=== PATIENT | male | born 1935 | race Caucasian/White ===

== ENCOUNTER 2017-01-22 08:28 | Emergency (ER) | payer MEDICARE, OTHER ==
[~2017-01-22] VITALS: Ht 190.5 cm; Wt 127.3 kg
[~2017-01-22 08:28] MED LIST: ASPIRIN 81M81 MG/TA2 PO; COMBIVENT INH14.7 GM IH; DUO-KAPS1 CAP PO; FISH OIL 1000MG1 CAP PO; HCTZ 25MG TAB25 MG PO; K-DUR 10 MEQ T10 MEQ PO; LASIX 20MG TABL20 MG PO; LEVAQUIN 750MG750 M1 PO; MICARDIS80 MG PO; NATURAL E400 IU PO; NEXIUM 40MG40 MG PO; NITROSTAT0.4 MG/TAB SL; OCUVITE1 TA1 PO; OMEGA 3 120 MG-1 CAP PO; PLAVIX 75MG TAB75 MG PO; PLENDIL10 MG PO; PRILOSEC 20MG20 MG PO; THERAGRAN1 TA1 PO; TOPROL XL100 MG PO; TYLENOL 325MG325 MG PO; VYTORIN 10 MG-41 TAB PO; ZANTAC 150MG T150 MG PO; ZETIA 10MG TAB10 MG PO; ZOCOR 40MG40 MG PO; [UNRECOGNIZED DRUG - REMARK]
[2017-01-22 08:32] VITALS: TEMP 97.4
[2017-01-22] MEDS ORDERED: ELIQUIS 5MG PO (08:50)
[2017-01-22 09:08] LABS: INR 1.4 (0.8-3.0); PROTHROMBIN TIME 15.3 SECONDS (9.7-12.8)
[2017-01-22 09:11] LABS: PARTIAL THROMBOPLASTIN TIME 39.1 SECONDS (26.0-37.0)
[2017-01-22 09:25] LABS: ADJUSTED CALCIUM 9.2 mg/dL (8.4-10.2); ALANINE AMINOTRANSFERASE 43 U/L (21-72); ALBUMIN 4.2 gm/dL (3.5-5.0); ALKALINE PHOSPHATASE 48 U/L (50-136); ANION GAP 12 mmol/L (7-16); BASO % 0.8 % (0.0-2.0); BILIRUBIN,TOTAL 1.4 mg/dL (0.0-1.0); BLOOD UREA NITROGEN 15 mg/dL (9-20); CALCIUM 9.4 mg/dL (8.4-10.2); CARBON DIOXIDE 27 mmol/L (22-30); CHLORIDE 104 mmol/L (98-107); CREATININE, serum 1.03 mg/dL (0.66-1.25); EOS # 0.2 (0.0-0.7); EOS % 5.1 % (0-4.0); GLUCOSE 115 mg/dL (74-106); GRAN # 2.7 (1.4-6.5); GRAN % 57.1 % (42.2-75.2); HEMATOCRIT 44.3 % (42.0-52.0); HEMOGLOBIN 15.2 g/dl (13.5-18.0); LYMPH # 1.3 (1.2-3.4); LYMPH % 27.7 % (20.0-51.0); MEAN CELL VOLUME 92 fl (80.0-100.0); MEAN CORPUSCULAR HEMOGLOBIN 32 pg (27.0-31.0); MEAN CORPUSCULAR HGB CONC 34 g/dl (33.0-37.0); MEAN PLATELET VOLUME 10.9 fl (7.4-10.4); MONO # 0.4 (0.1-0.6); MONO % 9.1 % (1.7-9.3); PLATELET COUNT 192 K/mm3 (130-400); POTASSIUM 3.1 mmol/L (3.4-5.0); REDCELL DISTRIBUTION WIDTH-CV 13.7 % (11.5-14.5); SODIUM 143 mmol/L (137-145); TOTAL PROTEIN 7.1 gm/dL (6.4-8.2); WHITE BLOOD COUNT 4.7 K/mm3 (4.8-10.8)
[2017-01-22 09:36] LABS: C-REACTIVE PROTEIN < 0.5 mg/dL (0.0-0.9); TROPONIN-I < 0.012 ng/mL (0.000-0.034)
[2017-01-22 09:36] LABS: PH 6 (5-8); SQUAMOUS EPITHELIAL None Seen /hpf; URINE APPEARANCE Clear; URINE BACTERIA None Seen /hpf; URINE BILIRUBIN Negative (NEGATIVE); URINE BLOOD Negative (NEGATIVE); URINE COLOR Yellow; URINE GLUCOSE Negative (NEGATIVE); URINE KETONE Negative (NEGATIVE); URINE RBC 0-2 /hpf; URINE UROBILINOGEN Negative (NEGATIVE)
[2017-01-22] MEDS ORDERED: BONINE25 MG PO (09:42)
[2017-01-22 10:09] VITALS: BP 130/83; PULSE 64
[2017-01-22] MEDS ORDERED: DIOVAN320 MG PO (10:12)
[2017-01-22] MEDS ORDERED: GRALISE300 MG PO (10:12)
[2017-01-22] MEDS ORDERED: FLOMAX 0.40.4 MG/CAP PO (10:12)
[2017-01-22] MEDS ORDERED: VYTORIN 10 MG-41 TAB PO (10:12)
== END 2017-01-22 10:12 | disposition home or self-care (01) ==
LOC: COL.ER 08:28
PROVIDERS: Family Medicine
DX: H81.21 Vestibular neuronitis, right ear (principal); I25.10 Atherosclerotic heart disease of native coronary artery without angina pectoris; Z95.5 Presence of coronary angioplasty implant and graft; I48.91 Unspecified atrial fibrillation

== ENCOUNTER → 2018-06-22 | Outpatient (CLI) | payer MEDICARE, OTHER ==
[~2018-06-22] MED LIST changes: +BONINE25 MG PO; +DIOVAN320 MG PO; +ELIQUIS 5MG PO; +FLOMAX 0.40.4 MG/CAP PO; +GRALISE300 MG PO
== END ==
LOC: COL.RAD 13:28
DX: M25.552 Pain in left hip (principal)
CPT/HCPCS: G0260; J3301

== ENCOUNTER 2019-07-06 09:41 | Day surgery (SDC) | payer MEDICARE, OTHER ==
[2019-07-06] VITALS (9 sets, daily range): BP systolic 114–158; BP diastolic 71–98; PULSE 52–83; TEMP 98.8
[~2019-07-06] VITALS: Ht 188 cm; Wt 131.5 kg
[2019-07-06] MEDS ORDERED: BONINE25 MG PO (10:33)
[2019-07-06] MEDS ORDERED: VITAMIN C500 MG PO (10:37)
[2019-07-06] MEDS ORDERED: OSTEO-BI-FLEX 21 TAB PO (10:37)
[2019-07-06] MEDS ORDERED: PROSCAR 5MG5 MG PO (10:38)
[2019-07-06] MEDS ORDERED: COZAAR 50MG50 MG/TAB PO ×2 (10:38→12:58)
[2019-07-06 11:14] LABS: INR 1.2 (0.8-3.0); PROTHROMBIN TIME 13.8 SECONDS (9.7-12.8)
[2019-07-06 11:21] LABS: CALCIUM 9.3 mg/dL (8.4-10.2); CREATININE, serum 0.87 (0.66-1.25); POTASSIUM 3.7 mmol/L (3.4-5.0)
[2019-07-06 11:23] LABS: HEMOGLOBIN 14.4 g/dl (13.5-18.0); MEAN CELL VOLUME 93 fl (80.0-100.0); MEAN CORPUSCULAR HEMOGLOBIN 32 pg (27.0-31.0); MEAN CORPUSCULAR HGB CONC 34 g/dl (33.0-37.0); MEAN PLATELET VOLUME 10.7 fl (7.4-10.4); PLATELET COUNT 189 K/mm3 (130-400); RED BLOOD COUNT 4.54 M/mm3 (4.20-5.60); REDCELL DISTRIBUTION WIDTH-CV 14.1 % (11.5-14.5)
--- NOTE | 2019-07-06 12:17 | NUR ---
SEE MERGE DOCUMENTATION FOR MEDICATION ADMINISTRATION TIMES AND INTRA/POST PROCEDURE SEDATION ASSESSMENTS.
--- NOTE | 2019-07-06 12:50 | NUR ---
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 O2 at 3 liters via nasal cannula with sats 92 - 94%. Right wrist Tband with 12 cc air, good pulses and cap refill < 3 secs. bedside
[2019-07-06] MEDS ORDERED: TOPROL XL100 MG PO (12:59)
--- NOTE | 2019-07-06 13:03 | NUR ---
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 VS monitors connected; VS's WNL. Pt remains slightly drowsy but answers questions and follows commands easily. Bedside handoff to BLAYNE Thurston. Right radial access site observed. TR band in place with 12 mL air. Site without bleeding, bruising, or hematoma. Cap refill <3 sec, no s/sx of impaired circulation noted. Pt denies pain or sensation changes to wrist/hand. Education provided regarding wrist movement restrictions. All questions answered at this time.
--- NOTE | 2019-07-06 15:19 | NUR ---
INT discontinued intact. Right Tband deflated of 12 cc air over 30 minutes. Pressure dressing applied to right wrist.
--- NOTE | 2019-07-06 15:39 | NUR ---
Discharge instructions given. Transferred to private car by deborah
== END 2019-07-06 15:40 | disposition home or self-care (01) ==
LOC: COL.CAR 09:41
PROVIDERS: Internal Medicine Cardiovascular Disease
DX: I25.10 Atherosclerotic heart disease of native coronary artery without angina pectoris (principal); I48.91 Unspecified atrial fibrillation; F41.9 Anxiety disorder, unspecified; G89.29 Other chronic pain; M54.9 Dorsalgia, unspecified; I10 Essential (primary) hypertension; E78.5 Hyperlipidemia, unspecified; D47.2 Monoclonal gammopathy; G47.33 Obstructive sleep apnea (adult) (pediatric); I73.9 Peripheral vascular disease, unspecified; G62.9 Polyneuropathy, unspecified; E66.9 Obesity, unspecified; Z68.38 Body mass index [BMI] 38.0-38.9, adult; Z90.49 Acquired absence of other specified parts of digestive tract; Z91.048 Other nonmedicinal substance allergy status; Z79.01 Long term (current) use of anticoagulants; Z87.891 Personal history of nicotine dependence; Z82.49 Family history of ischemic heart disease and other diseases of the circulatory system; Z80.49 Family history of malignant neoplasm of other genital organs
CPT/HCPCS: J1644; J2250; J3010; Q9967

== ENCOUNTER → 2019-07-15 | Outpatient (CLI) | payer MEDICARE, OTHER ==
[~2019-07-15] MED LIST changes: +COZAAR 50MG50 MG/TAB PO; +OSTEO-BI-FLEX 21 TAB PO; +PROSCAR 5MG5 MG PO; +VITAMIN C500 MG PO
== END ==
LOC: COL.RAD 07-08 11:00
DX: J44.9 Chronic obstructive pulmonary disease, unspecified (principal); J98.6 Disorders of diaphragm

== ENCOUNTER → 2019-12-03 | Outpatient (CLI) | payer MEDICARE, OTHER | LOC: COL.RAD 07:25 | DX: M54.42 Lumbago with sciatica, left side (principal); M25.552 Pain in left hip; G89.29 Other chronic pain | CPT/HCPCS: G0260; J3301 ==

== ENCOUNTER → 2019-12-21 | Outpatient (CLI) | payer MEDICARE, OTHER | LOC: MHCPAIN 13:02 | DX: M47.26 Other spondylosis with radiculopathy, lumbar region (principal); M48.061 Spinal stenosis, lumbar region without neurogenic claudication; G89.29 Other chronic pain; I48.91 Unspecified atrial fibrillation; R09.02 Hypoxemia | CPT/HCPCS: G0463 ==

== ENCOUNTER → 2023-06-18 | Outpatient (CLI) | payer MEDICARE, OTHER | LOC: MHCPAIN 12:05 | DX: M47.896 Other spondylosis, lumbar region (principal); M54.16 Radiculopathy, lumbar region; M48.061 Spinal stenosis, lumbar region without neurogenic claudication; I48.91 Unspecified atrial fibrillation | CPT/HCPCS: G0463 ==

== ENCOUNTER → 2023-06-19 | Outpatient (CLI) | payer MEDICARE, OTHER | LOC: MHCPAIN 12:19 | DX: M48.061 Spinal stenosis, lumbar region without neurogenic claudication (principal); M54.16 Radiculopathy, lumbar region | CPT/HCPCS: J1100; Q9967 ==

== ENCOUNTER → 2023-06-20 | Outpatient (CLI) | payer MEDICARE, OTHER | LOC: COL.PUL 10:40 | DX: R06.02 Shortness of breath (principal) ==